=== PATIENT | female | born 1990 | race Caucasian/White ===

== ENCOUNTER 2021-05-22 17:28 | Emergency (ER) | payer OTHER ==
[~2021-05-22 17:28] MED LIST: CELEXA20 MG PO; COLACE100 MG PO; FEOSOL325 MG PO; FLORAJEN460 MG PO; IBUPROFEN800 MG PO; NEXPLANON68 MG XX; PROBIOTIC1 EAC1 PO
[2021-05-24 04:09] LABS: HIV SCREEN 4TH GENERATION WRFX Non Reactive (Non Reactive)
== END 2021-05-22 19:10 | disposition home or self-care (01) ==
LOC: FER 17:28
PROVIDERS: Emergency Medicine
DX: S61.233A Puncture wound without foreign body of left middle finger without damage to nail, initial encounter (principal); F17.200 Nicotine dependence, unspecified, uncomplicated; Z23 Encounter for immunization; W46.0XXA Contact with hypodermic needle, initial encounter; Y92.89 Other specified places as the place of occurrence of the external cause; Y99.0 Civilian activity done for income or pay
CPT/HCPCS: 86706; 86803; 87389; 90471; 90715